=== PATIENT | male | born 1970 | race Caucasian/White ===

== ENCOUNTER 2017-11-12 19:57 | Emergency (ER) | payer SELFPAY ==
[~2017-11-12] VITALS: Ht 185.4 cm; Wt 74.8 kg
[2017-11-12] MEDS ORDERED: Bactrim Ds Tab1 EACH PO (21:06)
== END 2017-11-12 21:27 | disposition home or self-care (01) ==
LOC: ER 19:57
DX: L03.314 Cellulitis of groin (principal); F17.200 Nicotine dependence, unspecified, uncomplicated
CPT/HCPCS: 99283

== ENCOUNTER 2022-12-08 02:09 | Day surgery (SDC) | payer OTHER ==
[~2022-12-08 02:09] MED LIST: Bactrim Ds Tab1 EACH PO
== END 2022-12-08 22:52 | disposition home or self-care (01) ==
LOC: WOUND 02:09
DX: T81.89XA Other complications of procedures, not elsewhere classified, initial encounter (principal); C18.9 Malignant neoplasm of colon, unspecified; S31.609A Unspecified open wound of abdominal wall, unspecified quadrant with penetration into peritoneal cavity, initial encounter
CPT/HCPCS: A9270; G0463

== ENCOUNTER 2022-12-12 00:11 | Day surgery (SDC) | payer OTHER | END 2022-12-12 22:42 | disposition home or self-care (01) | LOC: WOUND 00:11 | DX: A41.9 Sepsis, unspecified organism (principal); K63.0 Abscess of intestine; K63.1 Perforation of intestine (nontraumatic); S31.609A Unspecified open wound of abdominal wall, unspecified quadrant with penetration into peritoneal cavity, initial encounter; C18.9 Malignant neoplasm of colon, unspecified ==

== ENCOUNTER 2022-12-21 02:13 | Day surgery (SDC) | payer OTHER | END 2022-12-21 23:05 | disposition home or self-care (01) | LOC: WOUND 02:13 | DX: S31.609D Unspecified open wound of abdominal wall, unspecified quadrant with penetration into peritoneal cavity, subsequent encounter (principal); X58.XXXD Exposure to other specified factors, subsequent encounter; K63.0 Abscess of intestine; K63.1 Perforation of intestine (nontraumatic); A41.9 Sepsis, unspecified organism; C18.9 Malignant neoplasm of colon, unspecified | CPT/HCPCS: A9270; G0463 ==

== ENCOUNTER 2022-12-28 02:35 | Day surgery (SDC) | payer OTHER | END 2022-12-28 22:56 | disposition home or self-care (01) | LOC: WOUND 02:35 | DX: T81.89XA Other complications of procedures, not elsewhere classified, initial encounter (principal); C18.9 Malignant neoplasm of colon, unspecified; K63.0 Abscess of intestine | CPT/HCPCS: A9270; G0463 ==

== ENCOUNTER 2023-01-04 01:14 | Day surgery (SDC) | payer OTHER | END 2023-01-04 23:05 | disposition home or self-care (01) | LOC: WOUND 01:14 | DX: S31.109A Unspecified open wound of abdominal wall, unspecified quadrant without penetration into peritoneal cavity, initial encounter (principal); K63.0 Abscess of intestine; K63.1 Perforation of intestine (nontraumatic); C18.9 Malignant neoplasm of colon, unspecified; X58.XXXA Exposure to other specified factors, initial encounter | CPT/HCPCS: 99406; G0463 ==

== ENCOUNTER 2023-01-12 02:34 | Day surgery (SDC) | payer OTHER | END 2023-01-12 23:22 | disposition home or self-care (01) | LOC: WOUND 02:34 | DX: S31.609D Unspecified open wound of abdominal wall, unspecified quadrant with penetration into peritoneal cavity, subsequent encounter (principal); X58.XXXD Exposure to other specified factors, subsequent encounter; K63.0 Abscess of intestine; K63.1 Perforation of intestine (nontraumatic); C18.9 Malignant neoplasm of colon, unspecified | CPT/HCPCS: A9270; G0463 ==

== ENCOUNTER 2023-09-28 01:00 | Day surgery (SDC) | payer OTHER ==
--- NOTE | 2023-09-14 12:14 | NUR ---
NO CALL, NO SHOW
[2023-09-28 15:45] VITALS: BP 121/72
[2023-09-28] MEDS ORDERED: ONDA4 PO (17:10)
== END 2023-09-28 15:58 | disposition home or self-care (01) ==
LOC: ATC 01:00
DX: C20 Malignant neoplasm of rectum (principal); Z87.891 Personal history of nicotine dependence
CPT/HCPCS: 96523; J1642